=== PATIENT | male | born 1970 | race African-American/Black ===

== ENCOUNTER 2024-06-15 12:49 | Emergency (ER) | payer MEDICAID, OTHER ==
[~2024-06-15] VITALS: Ht 175.3 cm; Wt 64.0 kg
[~2024-06-15 12:49] MED LIST: DEXTL PO; Docusate Sodium PO; SIMV-46 PO; XAR15 MT
[2024-06-15 12:51] VITALS: O2SAT 100
[2024-06-15] MEDS: KETOROLAC 30MG/ML VIAL IV STA (13:16)
[2024-06-15 14:38] LABS: BASOPHILS % 0.4 % (0.0-2.0); EOSINOPHILS % 0.4 % (0.0-5.0); HEMATOCRIT. 43.6 % (42.0-52.0); HEMOGLOBIN. 14.6 g/dL (14.0-18.0); LYMPHOCYTES % 50.1 % (20.0-50.0); MEAN CORPUSCULAR HEMOGLOBIN 30.3 pg (28.0-32.0); MEAN CORPUSCULAR HGB CONC 33.5 g/dL (31.0-37.0); MEAN CORPUSCULAR VOLUME 90.4 fL (80.0-94.0); MEAN PLATELET VOLUME 7.6 fl (7.4-10.4); MONOCYTES % 7.7 % (2.0-8.0); NEUTROPHILS % 41.4 % (40.0-76.0); PLATELET 315 x1000/uL (130-400); RED BLOOD CELL COUNT 4.83 mill/uL (4.7-6.1); RED CELL DISTRIBUTION WIDTH 14.2 % (11.6-14.6); WHITE BLOOD COUNT 8.1 x1000/uL (4.5-11.0)
[2024-06-15 14:50] LABS: INR 1.7; PARTIAL THROMBOPLASTIN TIME 41.6 sec (23.4-31.0); PROTHROMBIN TIME 17.8 sec (9.6-11.0)
[2024-06-15 15:09] LABS: CARBON DIOXIDE 31 mEq/L (21-32); CHLORIDE 103 mEq/L (98-107); POTASSIUM 3.8 mEq/L (3.5-5.1); SODIUM 138 mEq/L (136-145)
[2024-06-15 15:14] LABS: CREATININE 0.7 mg/dL (0.6-1.3)
[2024-06-15 15:15] LABS: GLUCOSE 86 mg/dL (70-105); UREA NITROGEN BLOOD 7 mg/dL (9-23)
[2024-06-15 15:16] LABS: ALANINE AMINOTRANSFERASE 12 IU/L (10-49); ALBUMIN 4.4 g/dL (3.2-4.8); ASPARTATE AMINOTRANSFERASE 13 IU/L (<34)
[2024-06-15 15:17] LABS: BILIRUBIN DIRECT 0.2 mg/dL (<=3.0); BILIRUBIN TOTAL 0.5 mg/dL (0.1-1.0); PROTEIN TOTAL 7.6 g/dL (6.0-8.3)
[2024-06-15 15:46] LABS: TROPONIN I HIGH SENSITIVITY < 4 ng/L (3.0-53)
[2024-06-15] MEDS: SODIUM CHLORIDE 0.9% 1,000 ML IV ONE (16:19)
[2024-06-15] MEDS: MORPHINE SULFATE 4 MG/ML INJ (FOR IV/IM USE) IV STA (16:36)
[2024-06-15] MEDS: ONDANSETRON HCL 4MG/2ML INJ IV STA (16:36)
[2024-06-15] MEDS: KETOROLAC 30MG/ML VIAL IV NR (16:45)
[2024-06-15 17:34] LABS: CLARITY URINE CLEAR (CLEAR); COLOR URINE YELLOW (YELLOW); GLUCOSE URINE NEGATIVE (NEGATIVE); KETONES URINE TRACE (NEGATIVE); LEUKOCYTE ESTERASE URINE NEGATIVE (NEGATIVE); NITRITE URINE NEGATIVE (NEGATIVE); OCCULT BLOOD URINE 1+ (NEGATIVE); PROTEIN URINE NEGATIVE (NEGATIVE); SPECIFIC GRAVITY URINE 1.024 (1.005-1.030)
[2024-06-15] MEDS ORDERED: POLY17PO3 MT (18:06)
[2024-06-15 19:00] LABS: BACTERIA URINE 1+; CALCIUM OXALATE CRYSTALS URINE 1+ /lpf; SQUAMOUS EPITHELIAL CELL URINE FEW /lpf (RARE/1+); WBC URINE 0-2 /hpf (0-2)
[2024-06-15 19:19] VITALS: BP 132/75; PULSE 63; RESP 18; TEMP 36.8; O2SAT 96
== END 2024-06-15 19:27 | disposition home or self-care (01) ==
LOC: ER 12:54
DX: K59.00 Constipation, unspecified (principal); I10 Essential (primary) hypertension; Z98.890 Other specified postprocedural states; Z86.73 Personal history of transient ischemic attack (TIA), and cerebral infarction without residual deficits
CPT/HCPCS: 80076; 80048; 81003; 83880; 83690; 85025; 85610; 85730; 84484; 36415; 71045; 74176; 93005; 96374; 99285; J1885; J7030; Z7610 ×2